=== PATIENT | male | born 1975 | race African-American/Black ===

== ENCOUNTER 2017-04-22 19:47 | Emergency (ER) | payer SELFPAY ==
[~2017-04-22] VITALS: Ht 180.3 cm; Wt 67.8 kg
[2017-04-22] MEDS ORDERED: FAMOTIDINE/PF INJ 20 MG/2 ML VIAL IV ONE ×2 (20:12→20:30)
[2017-04-22] MEDS ORDERED: ONDANSETRON HCL/PF 4 MG/2 ML VIAL ONE (20:12)
[2017-04-22] MEDS ORDERED: MORPHINE SULFATE INJ 4 MG/ML DISP.SYRIN ONE (20:12)
[2017-04-22 20:13] LABS: BASOPHILS # (AUTO) 0.1 /CMM (0.0-0.2); BASOPHILS % (AUTO) 1.3 % (0.0-2.0); EOSINOPHILS # (AUTO) 0.2 /CMM (0.0-0.7); EOSINOPHILS % (AUTO) 2.7 % (0.0-6.0); HEMATOCRIT 38 % (39-51); HEMOGLOBIN 13.2 g/dL (13.5-17.5); LYMPHOCYTES # (AUTO) 2.5 /CMM (0.8-4.8); LYMPHOCYTES % (AUTO) 37.2 % (20.0-44.0); MEAN CORPUSCULAR HEMOGLOBIN 28 PG (26.0-33.0); MEAN CORPUSCULAR HGB CONC 34 g/dl (31.0-36.0); MEAN CORPUSCULAR VOLUME 80 fL (80-96); MONOCYTES # (AUTO) 0.5 /CMM (0.1-1.30); MONOCYTES % (AUTO) 8.1 % (2.0-12.0); NEUTROPHILS # (AUTO) 3.5 /CMM (1.8-8.9); NEUTROPHILS % (AUTO) 50.7 % (43.0-81.0); PLATELET COUNT (AUTO) 254 /CMM (150-450); RDW COEFFICIENT OF VARIATION 13.8 (11.5-15.0); WHITE BLOOD COUNT (AUTO) 6.8 K/uL (4.3-11.0)
[2017-04-22 20:27] LABS: CALCIUM, SERUM 8.3 mg/dL (8.5-10.1); CREATININE 0.9 mg/dL (0.6-1.3); POTASSIUM 3.9 mmol/L (3.5-5.1)
[2017-04-22] MEDS ORDERED: ONDANSETRON HCL/PF 4 MG/2 ML VIAL IVP ONE (20:30)
[2017-04-22] MEDS ORDERED: IV NS 0.9% 1,000 ML BAG IV ONE (20:30)
[2017-04-22] MEDS ORDERED: MORPHINE SULFATE INJ 2 MG/ML DISP.SYRIN IV ONE (20:30)
[2017-04-22 20:33] LABS: ALBUMIN 3.6 g/dL (3.4-5.0); BILIRUBIN,TOTAL 0.1 mg/dL (0.2-1.0); TOTAL PROTEIN, SERUM 6.6 g/dL (6.4-8.2)
[2017-04-22 21:44] VITALS: BP 116/63
--- NOTE | 2017-04-22 21:46 | NUR ---
Patient discharged to home in stable condition. Written and verbal after care instructions given. Patient verbalizes understanding of instruction. IV removed. Catheter intact and site benign. Pressure and 4x4 applied to site. No bleeding noted. Pt ambulatory with a steady gait. VSS, NAD noted on DC.
== END 2017-04-22 21:47 | disposition home or self-care (01) ==
LOC: ER 19:49
DX: R10.13 Epigastric pain (principal); F10.10 Alcohol abuse, uncomplicated
CPT/HCPCS: 36415; 80048; 80076; 83690; 85025; 96361; 96374; 96375; 99284; A4606; J2270; J2405; J3490; J7030; Z7610

== ENCOUNTER 2018-12-07 19:27 | Emergency (ER) | payer OTHER ==
[~2018-12-07] VITALS: Ht 180.3 cm; Wt 70.3 kg
[2018-12-07] MEDS ORDERED: PANTOPRAZOLE 40 MG VIAL IV ONE (20:00)
[2018-12-07] MEDS ORDERED: IV NS 0.9% 1,000 ML BAG IV ONE (20:00)
[2018-12-07] MEDS ORDERED: ONDANSETRON HCL/PF 4 MG/2 ML VIAL IVP ONE (20:00)
[2018-12-07] MEDS ORDERED: PANTOPRAZOLE 40 MG VIAL ONE (20:02)
[2018-12-07] MEDS ORDERED: ONDANSETRON HCL/PF 4 MG/2 ML VIAL ONE (20:02)
--- NOTE | 2018-12-07 20:18 | NUR ---
[place]. "JUST GOT BACK FROM [place], BEEN HAVING ABD PAIN WITH NAUSEA + VOMITING AND HX OF STOMACH CANCER" +N/V -SOB AOX4. AMBULATORY. VSS
[2018-12-07 20:20] LABS: BASOPHILS # (AUTO) 0.1 /CMM (0.0-0.2); BASOPHILS % (AUTO) 1.5 % (0.0-2.0); EOSINOPHILS % (AUTO) 2.7 % (0.0-6.0); HEMATOCRIT 36 % (39-51); HEMOGLOBIN 11.9 g/dL (13.5-17.5); LYMPHOCYTES # (AUTO) 2.1 /CMM (0.8-4.8); LYMPHOCYTES % (AUTO) 27.9 % (20.0-44.0); MEAN CORPUSCULAR HGB CONC 33 g/dl (31.0-36.0); MEAN CORPUSCULAR VOLUME 79 fL (80-96); MONOCYTES # (AUTO) 0.7 /CMM (0.1-1.30); MONOCYTES % (AUTO) 8.9 % (2.0-12.0); NEUTROPHILS # (AUTO) 4.4 /CMM (1.8-8.9); PLATELET COUNT (AUTO) 252 /CMM (150-450); RED BLOOD CELL COUNT(AUTO) 4.54 MIL/uL (4.5-6.0); WHITE BLOOD COUNT (AUTO) 7.5 K/uL (4.3-11.0)
[2018-12-07 20:34] LABS: ALBUMIN 3.6 g/dL (3.4-5.0); BILIRUBIN,TOTAL 0.1 mg/dL (0.2-1.0); CALCIUM, SERUM 8.3 mg/dL (8.5-10.1); POTASSIUM 4.1 mmol/L (3.5-5.1); TOTAL PROTEIN, SERUM 6.8 g/dL (6.4-8.2)
[2018-12-07 21:22] VITALS: BP 122/81
== END 2018-12-07 21:23 | disposition home or self-care (01) ==
LOC: ER 19:27
DX: K59.00 Constipation, unspecified (principal); R10.13 Epigastric pain; R19.7 Diarrhea, unspecified; F17.200 Nicotine dependence, unspecified, uncomplicated; Z98.890 Other specified postprocedural states; Z59.0 Homelessness; Z88.6 Allergy status to analgesic agent; Z85.028 Personal history of other malignant neoplasm of stomach
CPT/HCPCS: 36415; 71045; 74176; 80048; 80076; 80307; 85025; 96361; 96374; 96375; 99284; 99406; C9113; J2405; J7030; G0480

== ENCOUNTER 2020-04-06 09:57 | Emergency (ER) | payer MEDICAID, OTHER ==
[~2020-04-06] VITALS: Ht 170.2 cm; Wt 71.2 kg
--- NOTE | 2020-04-06 10:22 | NUR ---
pt ambulatory to er bed 14 c/o suicidal ideation w/ plan on jumping off a bridge. want to be admitted voluntary to a psych facility. stable vitals. awaiting md ellison.
--- NOTE | 2020-04-06 10:23 | NUR ---
security at bedside for patient wanding. pt belongings to safe locker.
--- NOTE | 2020-04-06 10:24 | NUR ---
dr fish at bedside for eval.
--- NOTE | 2020-04-06 10:35 | NUR ---
laborer tree tapping at bedside for blood draw.
[2020-04-06 10:50] LABS: BASOPHILS # (AUTO) 0.1 /CMM (0.0-0.2); BASOPHILS % (AUTO) 0.8 % (0.0-2.0); EOSINOPHILS % (AUTO) 1.7 % (0.0-6.0); HEMATOCRIT 39 % (39-51); HEMOGLOBIN 12.5 g/dL (13.5-17.5); LYMPHOCYTES # (AUTO) 2.2 /CMM (0.8-4.8); LYMPHOCYTES % (AUTO) 26.3 % (20.0-44.0); MEAN CORPUSCULAR HGB CONC 32 g/dl (31.0-36.0); MEAN CORPUSCULAR VOLUME 81 fL (80-96); MONOCYTES # (AUTO) 0.7 /CMM (0.1-1.30); MONOCYTES % (AUTO) 8.4 % (2.0-12.0); NEUTROPHILS # (AUTO) 5.3 /CMM (1.8-8.9); NEUTROPHILS % (AUTO) 62.8 % (43.0-81.0); PLATELET COUNT (AUTO) 272 /CMM (150-450); WHITE BLOOD COUNT (AUTO) 8.4 K/uL (4.3-11.0)
[2020-04-06 11:14] LABS: ALANINE AMINOTRANSFERASE 38 U/L (12-78); ALBUMIN 3.5 g/dL (3.4-5.0); ALCOHOL, BLOOD < 3 mg/dL (0-0); ALKALINE PHOSPHATASE 87 U/L (46-116); ASPARTATE AMINOTRANSFERASE 16 U/L (15-37); BILIRUBIN,DIRECT 0.1 mg/dL (0.0-0.2); BILIRUBIN,TOTAL 0.2 mg/dL (0.2-1.0); CALCIUM, SERUM 8.3 mg/dL (8.5-10.1); CARBON DIOXIDE 29 mmol/L (21-32); CHLORIDE 105 mmol/L (98-107); CREATININE 0.9 mg/dL (0.6-1.3); GLUCOSE 76 mg/dL (74-106); POTASSIUM 3.9 mmol/L (3.5-5.1); SODIUM SERUM 140 mmol/L (136-145); TOTAL PROTEIN, SERUM 6.7 g/dL (6.4-8.2); UREA NITROGEN, BLOOD 11 mg/dL (7-18)
[2020-04-06 11:18] LABS: ACETAMINOPHEN 0 ug/ml (10-30)
--- NOTE | 2020-04-06 12:32 | NUR ---
COVID specimens sent to Lab
--- NOTE | 2020-04-06 14:21 | NUR ---
This SW met with the patient at bedside. Patient is a 44 year-old male. Patient was receptive to speaking with this SW. Patient is alert and oriented x4. Patient sat up to make direct eye contact with this SW. Patient presented to [facility] for medical clearance as patient is seeking voluntary psychiatric hospitalization at [facility]. Patient reports that he was diagnosed with bipolar disorder several years ago and has not taken medication in 6 months as he no longer has a prescription. Patient is requesting transfer to [facility]. SW and patient discussed voluntary psychiatric hospitalization and patient agreed. Patient denies homicidal ideation. Patient denies auditory and visual hallucinations. Patient reported the use of methamphetamine and marijuana and patients toxicology report confirmed this. SW and patient discussed community resources and patient declined these resources. Patient informed this SW that he is currently receiving $1,000 in [employer]. Patient remained calm and cooperative throughout this assessment. Patients thought process was clear and concise. Patient's speech was normal and clear. Plan: SW will fax clinicals to [facility] Intake and will notify Benjamín at [facility] (cell) regarding patient wanting voluntary admission. Addendum: 04/06/20 at 1433 by AVI GRACIA SW had patient sign homeless waiver form and this SW placed a copy in the patient's chart.
--- NOTE | 2020-04-06 15:18 | NUR ---
ACCEPTED AT [facility] ACCEPTING MD IS [facility] [address] CALL [phone]
--- NOTE | 2020-04-06 15:22 | NUR ---
CALLED [facility] FOR TRANSPORT ETA IS 1800
--- NOTE | 2020-04-06 16:15 | NUR ---
report given to yolanda rdz amanda vn. pending transfer.
[2020-04-06 17:57] VITALS: BP 147/97
--- NOTE | 2020-04-06 17:57 | NUR ---
resting in bed. stable vitals. will continue to monitor.
--- NOTE | 2020-04-06 19:24 | NUR ---
[facility] CALLED TRANSPORT DELAYED TO ETA 2000 HOURS
--- NOTE | 2020-04-06 19:27 | NUR ---
NEW ETA 2030
--- NOTE | 2020-04-06 20:23 | NUR ---
REPORT GIVEN TO [facility] PERSONEL FOR [facility]. AND TRANSFERRING RESPONSIBILITES.
--- NOTE | 2020-04-06 20:23 | NUR ---
BELONGINGS HANDED OVER TO [facility] LOTT
== END 2020-04-06 20:23 ==
LOC: ER 10:00
DX: F32.9 Major depressive disorder, single episode, unspecified (principal); R45.851 Suicidal ideations; Z59.0 Homelessness; F19.10 Other psychoactive substance abuse, uncomplicated; Z20.828 Contact with and (suspected) exposure to other viral communicable diseases; D64.9 Anemia, unspecified; Z88.6 Allergy status to analgesic agent; Z85.028 Personal history of other malignant neoplasm of stomach
CPT/HCPCS: 36415; 80048; 80076; 80299; 80307; 80320; 85025; 87426; 99285; C9803; G0480